=== PATIENT | male | born 1985 | race African-American/Black ===

== ENCOUNTER 2017-12-27 09:33 | Emergency (ER) | payer SELFPAY ==
[~2017-12-27] VITALS: Ht 180.3 cm; Wt 80.7 kg
[2017-12-27 12:56] VITALS: BP 103/71
== END 2017-12-27 12:56 | disposition home or self-care (01) ==
LOC: ED 09:33
DX: Z20.2 Contact with and (suspected) exposure to infections with a predominantly sexual mode of transmission (principal)
CPT/HCPCS: 87491; 87591; J0696